=== PATIENT | female | born 1990 | race Caucasian/White ===

== ENCOUNTER 2021-04-04 18:48 | Emergency (ER) | payer MEDICAID ==
--- NOTE | 2021-04-04 19:24 | EDM.PDOC ---
ED HPI GENERAL MEDICAL PROBLEM - General Chief Complaint: Skin Complaint Stated Complaint: SKIN COMPLAINT/POSS CYST Time Seen by Provider: 04/04/21 19:19 Source of Information: Reports: Patient History Limitations: Reports: No Limitations - History of Present Illness INITIAL COMMENTS - FREE TEXT/NARRATIVE: Patient is a 30-year-old female who noted she had a small lump under her left axilla approximately 4 weeks ago which has recently gotten bigger and more painful. Patient has had a similar symptoms few years ago that needed to be I&D. Patient denies any fever chills or having these in other areas. She denies any redness to the area however this comes to ahead. She has no other complaints. 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 Left Axillary Pain Score (Numeric/FACES): 7 - Related Data Allergies Allergy/AdvReac Type Severity Reaction Status Date / Time Penicillins Allergy Anaphylactic Verified 04/04/21 19:15 Shock topiramate Allergy Anaphylactic Verified 04/04/21 19:15 Shock Home Meds: Home Meds clindamycin HCL [Cleocin] 150 mg PO Q8H #21 cap 04/04/21 [Rx] Social & Family History - Tobacco Use Tobacco Use Status *Q: Current Every Day Tobacco User Years of Tobacco use: 15 Packs/Tins Daily: 0.5 - Caffeine Use Caffeine Use: Reports: Coffee - Recreational Drug Use Recreational Drug Use: No ED ROS GENERAL - Review of Systems Review Of Systems: Comprehensive ROS is negative, except as noted in HPI. Constitutional: Reports: No Symptoms HEENT: Reports: No Symptoms Musculoskeletal: Reports: No Symptoms Skin: Reports: Lumps (1 lump in her left axilla.). Denies: Erythema Neurological: Reports: No Symptoms ED EXAM, SKIN/RASH Exam: See Below Exam Limited By: No Limitations General Appearance: Alert, No Apparent Distress Head: Atraumatic Neck: Normal Inspection, Supple Respiratory/Chest: No Respiratory Distress GI/Abdominal: No Distention Back Exam: Normal Inspection Extremities: Normal Inspection Neurological: Alert, Oriented Psychiatric: Normal Affect, Normal Mood Skin: Warm, Dry, Other (Nonfluctuant abscess approximately 3 x 2 cm in her left axilla that is tender to touch.) Location, Skin: Upper Extremity, Left Associated features: Tenderness, Swelling. No: Warmth Lymphatic: No Adenopathy Course - Vital Signs Text/Narrative:: I will start patient on clindamycin for 7-day course. She is to continue with warm compresses 4 times a day. She is to return to ER once this abscess is softened up highly fluctuant or sooner if things are worse. Continue with antacids as needed. Last Recorded V/S: Last Vital Signs Temp 97.5 F 04/04/21 19:13 Pulse 77 04/04/21 19:13 Resp 18 04/04/21 19:13 BP 120/87 04/04/21 19:13 Pulse Ox 99 04/04/21 19:13 Departure - Departure Time of Disposition: 19:29 Disposition: Home, Self-Care 01 Condition: Good Clinical Impression: Abscess - Discharge Information Prescriptions: clindamycin HCL [Cleocin] 150 mg PO Q8H #21 cap Instructions: Skin Abscess Referrals: PCP,Not In Area [Primary Care Provider] - Additional Instructions: Compress 4 times a day. Ibuprofen as needed. Return to ER at once abscess becomes soft or is worse. Sepsis Event Note (ED) - Evaluation Sepsis Screening Result: No Definite Risk - Focused Exam Vital Signs: Vital Signs Temp Pulse Resp BP Pulse Ox 04/04/21 19:13 97.5 F 77 18 120/87 99
[2021-04-04] MEDS ORDERED: Clindamycin HCl 150 MG Cap PO ONE (19:58)
== END 2021-04-04 20:45 | disposition home or self-care (01) ==
LOC: JD.ED 18:48
DX: L02.412 Cutaneous abscess of left axilla (principal); Z88.0 Allergy status to penicillin; Z88.8 Allergy status to other drugs, medicaments and biological substances; Z72.0 Tobacco use
CPT/HCPCS: 99282; A9270; 99283